=== PATIENT | male | born 1960 | race Caucasian/White ===

== ENCOUNTER 2023-10-07 17:31 | Emergency (ER) | payer OTHER ==
[2023-10-07 17:41] VITALS: BP 115/80; PULSE 83; RESP 18; TEMP 97.7; BMI 27.4
== END 2023-10-07 18:55 | disposition home or self-care (01) ==
LOC: FER 17:31
PROC: 0HQ0XZZ Repair Scalp Skin, External Approach (ICD-10-PCS; principal; 2023-10-07)
DX: S01.01XA Laceration without foreign body of scalp, initial encounter (principal); W01.198A Fall on same level from slipping, tripping and stumbling with subsequent striking against other object, initial encounter; Y93.01 Activity, walking, marching and hiking
CPT/HCPCS: 70450-TC; 99284-25